=== PATIENT | female | born 1970 | race Hispanic/Latino ===

== ENCOUNTER 2017-02-08 16:19 | Inpatient (IN) | payer SELFPAY ==
--- NOTE | 2017-02-08 17:36 | Emergency Department Report ---
ED GI Bleed HPI - General Chief complaint: GI Bleed Stated complaint: N/V/D FEVER/NOSE BLEEDING Time Seen by Provider: 02/08/17 17:28 Source: patient, EMS Mode of arrival: Stretcher Limitations: Physical Limitation - History of Present Illness Initial comments: Patient is 46 y/o cf brought in by ems and presents with abd pain times 1 day and n/v/d times 3 days. Patient also reports having a nosebleed and bleeding from rectum that started today. Patient has a pretty significant history of alcohol abuse drinking approximately 5 shots of vodka per day for 6 months to a year. Patient complains of having a fever. Patient denies chest pain or shortness of breath. Patient states that her abdominal pain that started 1 day ago is in her bilateral lower abdomen. Abdominal pain is worse with movement and palpation. Patient does have recent ill contacts. MD complaint: blood on toilet paper, gross hematochezia -: Sudden, days(s) Location: LLQ, RLQ Radiation: none Severity scale (0 -10): 6 Quality: sharp Consistency: constant Improves with: bowel movement, vomiting, rest Worsens with: eating, movement Context: history of GI bleed, liver disease, alcohol abuse Associated Symptoms: abdominal pain, nausea, vomiting, epistaxis, fever/chills, malaise, weakness - Related Data Home Medications Medication Instructions Recorded Confirmed Last Taken Ondansetron 4 mg PO Q6H PRN 04/15/15 04/15/15 Unknown Oxycontin 20 mg PO BID 04/15/15 04/15/15 Unknown Percocet 5/325 mg 5 mg PO Q4H 04/15/15 04/15/15 Unknown Toradol 10 mg PO Q6H PRN 04/15/15 04/15/15 Unknown Xanax TAB 0.5 mg PO BID 04/15/15 04/15/15 04/15/15 Previous Rx's Medication Instructions Recorded Last Taken Type Cephalexin [Keflex] 500 mg PO Q8HR #18 cap 04/18/15 Unknown Rx HYDROcodone/APAP 5-325 [[place] 1 each PO Q6H PRN #15 tablet 04/18/15 Unknown Rx 5-325 mg TAB] Ipratropium/Albuterol Sulfate 1 ampul IH Q6H PRN #50 ampul.neb 04/18/15 Unknown Rx [DUONEB *Not for PRN Use*] Pantoprazole [Protonix TAB] 40 mg PO QDAY #30 tablet 04/18/15 Unknown Rx predniSONE [Deltasone] 10 mg PO QDAY #7 tab 04/18/15 Unknown Rx Allergies Allergy/AdvReac Type Severity Reaction Status Date / Time codeine Allergy Unknown Verified 04/15/15 21:07 levofloxacin [From Levaquin] Allergy Unknown Verified 04/15/15 21:07 Penicillins Allergy Unknown Verified 04/15/15 21:07 ED Review of Systems ROS: Stated complaint: N/V/D FEVER/NOSE BLEEDING Other details as noted in HPI Constitutional: fever, malaise, weakness Eyes: as per HPI ENT: as per HPI Respiratory: no symptoms reported Cardiovascular: as per HPI Endocrine: no symptoms reported Gastrointestinal: as per HPI, abdominal pain, nausea, vomiting, diarrhea, hematochezia Genitourinary: as per HPI Musculoskeletal: as per HPI Skin: as per HPI Neurological: as per HPI, weakness, numbness, vertigo Hematological/Lymphatic: as per HPI, easy bruising ED Past Medical Hx - Past Medical History Hx Hypertension: Yes Hx CVA: No Hx Heart Attack/AMI: No Hx Congestive Heart Failure: No Hx Diabetes: No Hx Deep Vein Thrombosis: No Hx Pulmonary Embolism: No Hx GERD: Yes Hx Liver Disease: Yes Hx Renal Disease: No Hx of Cancer: No Hx Sickle Cell Disease: No Hx Headaches / Migraines: Yes Hx Kidney Stones: No Hx Asthma: No Hx COPD: No Hx Tuberculosis: No Hx Dementia: No Additional medical history: Anxiety - Surgical History Hx Cholecystectomy: Yes Additional Surgical History: gastric bypass - Social History Smoking Status: Never Smoker Substance Use Type: Alcohol - Medications Home Medications: Home Medications Medication Instructions Recorded Confirmed Last Taken Type Ondansetron 4 mg PO Q6H PRN 04/15/15 04/15/15 Unknown History Oxycontin 20 mg PO BID 04/15/15 04/15/15 Unknown History Percocet 5/325 mg 5 mg PO Q4H 04/15/15 04/15/15 Unknown History Toradol 10 mg PO Q6H PRN 04/15/15 04/15/15 Unknown History Xanax TAB 0.5 mg PO BID 04/15/15 04/15/15 04/15/15 History Cephalexin [Keflex] 500 mg PO Q8HR #18 cap 04/18/15 Unknown Rx HYDROcodone/APAP 5-325 [[place] 1 each PO Q6H PRN #15 tablet 04/18/15 Unknown Rx 5-325 mg TAB] Ipratropium/Albuterol Sulfate 1 ampul IH Q6H PRN #50 ampul.neb 04/18/15 Unknown Rx [DUONEB *Not for PRN Use*] Pantoprazole [Protonix TAB] 40 mg PO QDAY #30 tablet 04/18/15 Unknown Rx predniSONE [Deltasone] 10 mg PO QDAY #7 tab 04/18/15 Unknown Rx ED Physical Exam - General Limitations: Physical Limitation General appearance: alert, in no apparent distress, anxious - Head Head exam: Present: atraumatic, normocephalic, normal inspection - Eye Eye exam: Present: normal appearance, PERRL, EOMI Pupils: Present: normal accommodation - ENT ENT exam: Present: mucous membranes dry - Neck Neck exam: Present: normal inspection, full ROM - Respiratory Respiratory exam: Present: normal lung sounds bilaterally - Cardiovascular Cardiovascular Exam: Present: regular rate, normal heart sounds - GI/Abdominal GI/Abdominal exam: Present: soft, tenderness, normal bowel sounds - Rectal Rectal exam: Present: deferred - Extremities Exam Extremities exam: Present: normal inspection, full ROM - Back Exam Back exam: Present: normal inspection - Neurological Exam Neurological exam: Present: alert, altered, oriented X3, CN II-XII intact - Psychiatric Psychiatric exam: Present: anxious - Skin Skin exam: Present: warm, dry, intact ED Course Vital Signs 02/08/17 17:17 Temperature 99.6 F Pulse Rate 111 H Respiratory 18 Rate Blood Pressure 127/71 Blood Pressure 127/71 [Left] O2 Sat by Pulse 100 Oximetry ED Medical Decision Making - Lab Data Result diagrams: 02/08/17 18:06 02/08/17 18:06 Lactic acid = 8.2, - Medical Decision Making Patient found to have a lactic acidosis along with a hypokalemia patient also had a drop in hemoglobin which is now 11.6 per patient her hemoglobin is normally at 14. Banana bag ordered for patient along with normal saline and kcl piggyback.. Discussed plan with patient. Patient agreed and voiced understanding of plan to admit.. Patient was admitted to the hospitalist group. I discussed patient's case with Dr. Cunningham.. Dr. Cunningham has accepted the patient,... - Differential Diagnosis bleeding d/o, abd pain, gi bleed, gastroenteritis, Critical care attestation.: If time is entered above; I have spent that time in minutes in the direct care of this critically ill patient, excluding procedure time. ED Disposition Clinical Impression: GI (gastrointestinal bleed), Nausea & vomiting, Diarrhea, Hypokalemia, Fever Disposition: -09 OP ADMIT IP TO THIS HOSP Is pt being admited?: Yes Does the pt Need Aspirin: No Condition: Serious
[2017-02-08] MEDS ORDERED: ATIVAN IV ONE (17:44)
[2017-02-08 18:19] LABS: Basophils % (Auto) 1.9 % (0.0-1.8); Hematocrit 35.7 % (30.3-42.9); Hemoglobin 11.6 gm/dl (10.1-14.3); Mean Corpuscular HGB Conc 33 % (30-34); Mean Corpuscular Hemoglobin 27 pg (28-32); Mean Corpuscular Volume 83 fl (79-97); Red Blood Count 4.28 M/mm3 (3.65-5.03); Red Cell Distribution Width 17.6 % (13.2-15.2); White Blood Count 2.7 K/mm3 (4.5-11.0)
[2017-02-08 18:22] LABS: Platelet Count 83 K/mm3 (140-440)
[2017-02-08 18:29] LABS: INR 1.31 (0.87-1.13)
[2017-02-08 18:30] LABS: Partial Thromboplastin Time 35.1 Sec. (24.2-36.6)
[2017-02-08 18:36] LABS: Urine Drugs of Abuse Note Disclamer
[2017-02-08 18:40] LABS: Alanine Aminotransferase 49 units/L (7-56); Albumin 3.6 g/dL (3.9-5); Albumin/Globulin Ratio 1.1 %; Alkaline Phosphatase 260 units/L (35-129); Anion Gap 33 mmol/L; BUN/Creatinine Ratio 14; Bilirubin,Direct 1.3 mg/dL (0-0.2); Blood Urea Nitrogen 7 mg/dL (7-17); Calcium 7.9 mg/dL (8.4-10.2); Carbon Dioxide 21 mmol/L (22-30); Chloride 77.3 mmol/L (98-107); Glucose 84 mg/dL (65-100); Lipase 32 units/L (13-60); Sodium 129 mmol/L (137-145); Total Protein 6.8 g/dL (6.3-8.2)
[2017-02-08 18:43] LABS: Bilirubin,Urine NEG (Negative); Blood,Urine SM (Negative); Ketones,Urine 20 mg/dL (Negative); Leukocyte Esterase,Urine TR (Negative); Nitrite,Urine NEG (Negative)
[2017-02-08 18:55] LABS: Potassium 2.8 mmol/L (3.6-5.0)
[2017-02-08] MEDS ORDERED: VITAMIN B-1 100 MG, FOLVITE 1 MG, INFUVITE 10 ML in NACL 0.9% 1000 ML 1,000 ML IV ONE (19:04)
[2017-02-08] MEDS ORDERED: NACL 0.9% 1000 ML 1,000 ML IV ONE (19:05)
[2017-02-08] MEDS ORDERED: 1: FOLVITE 1 MG, INFUVITE 10 ML, VITAMIN B-1 100 MG in NACL 0.9% 1000 ML 988.8 ML 2: NA IV SCH ×2 (20:00→20:45)
--- NOTE | 2017-02-08 20:22 | History and Physical Report ---
History of Present Illness Date of examination: 02/08/17 Date of admission: 02/08/17 Chief complaint: Cc: Vomiting for 1 day BRBPR 1 day History of present illness: History of Present Illness Patient is 46 y/o cf brought in by ems and presents with abd pain times 1 day and n/v/d times 3 days. Patient also reports having a nose bleed and bleeding from rectum that started today. Patient has a pretty significant history of alcohol abuse drinking approximately 5 shots of vodka per day for 6 months to a year. Patient complains of having a fever. Patient denies chest pain or shortness of breath. Patient states that her abdominal pain that started 1 day ago is in her epigastric region. Past Medical History Hx GERD: Yes Hx Liver Disease: Yes Hx Headaches / Migraines: Yes Additional medical history: Anxiety Chronic pain - Surgical History Hx Cholecystectomy: Yes Additional Surgical History: gastric bypass - Social History Smoking Status: Never Smoker Substance Use Type: Alcohol on regular basis for 1 year - Medications Home Medications: Home Medications Medication Instructions Recorded Confirmed Last Taken Type Ondansetron 4 mg PO Q6H PRN 04/15/15 04/15/15 Unknown History Oxycontin 20 mg PO BID 04/15/15 04/15/15 Unknown History Percocet 5/325 mg 5 mg PO Q4H 04/15/15 04/15/15 Unknown History Toradol 10 mg PO Q6H PRN 04/15/15 04/15/15 Unknown History Xanax TAB 0.5 mg PO BID 04/15/15 04/15/15 04/15/15 History Cephalexin [Keflex] 500 mg PO Q8HR #18 cap 04/18/15 Unknown Rx HYDROcodone/APAP 5-325 [[place] 1 each PO Q6H PRN #15 tablet 04/18/15 Unknown Rx 5-325 mg TAB] Ipratropium/Albuterol Sulfate 1 ampul IH Q6H PRN #50 ampul.neb 04/18/15 Unknown Rx [DUONEB *Not for PRN Use*] Pantoprazole [Protonix TAB] 40 mg PO QDAY #30 tablet 04/18/15 Unknown Rx predniSONE [Deltasone] 10 mg PO QDAY #7 tab 04/18/15 Unknown Rx Review of Systems Stated complaint: N/V/D FEVER/NOSE BLEEDING Other details as noted in HPI Constitutional: fever, malaise, weakness Eyes: as per HPI ENT: as per HPI Respiratory: no symptoms reported Cardiovascular: as per HPI Endocrine: no symptoms reported Gastrointestinal: as per HPI, abdominal pain, nausea, vomiting, diarrhea, hematochezia Genitourinary: as per HPI Musculoskeletal: as per HPI Skin: as per HPI Neurological: as per HPI, weakness, numbness, vertigo Hematological/Lymphatic: as per HPI, easy bruising Medications and Allergies Allergies Allergy/AdvReac Type Severity Reaction Status Date / Time codeine Allergy Unknown Verified 04/15/15 21:07 levofloxacin [From Levaquin] Allergy Unknown Verified 04/15/15 21:07 Penicillins Allergy Unknown Verified 04/15/15 21:07 Home Medications Medication Instructions Recorded Confirmed Last Taken Type Ondansetron 4 mg PO Q6H PRN 04/15/15 04/15/15 Unknown History Oxycontin 20 mg PO BID 04/15/15 04/15/15 Unknown History Percocet 5/325 mg 5 mg PO Q4H 04/15/15 04/15/15 Unknown History Toradol 10 mg PO Q6H PRN 04/15/15 04/15/15 Unknown History Xanax TAB 0.5 mg PO BID 04/15/15 04/15/15 04/15/15 History Cephalexin [Keflex] 500 mg PO Q8HR #18 cap 04/18/15 Unknown Rx HYDROcodone/APAP 5-325 [[place] 1 each PO Q6H PRN #15 tablet 04/18/15 Unknown Rx 5-325 mg TAB] Ipratropium/Albuterol Sulfate 1 ampul IH Q6H PRN #50 ampul.neb 04/18/15 Unknown Rx [DUONEB *Not for PRN Use*] Pantoprazole [Protonix TAB] 40 mg PO QDAY #30 tablet 04/18/15 Unknown Rx predniSONE [Deltasone] 10 mg PO QDAY #7 tab 04/18/15 Unknown Rx Active Meds: Active Medications Folic Acid 1 mg/ Multivitamins /Minerals 10 ml/ Thiamine HCl 100 mg/ Sodium Chloride 1,000 mls @ 125 mls/hr IV .BY DURATION ADRIANNA Sodium Chloride (Nacl 0.9% 1000 Ml) 1,000 mls @ 125 mls/hr IV .BY DURATION ADRIANNA Thiamine HCl 100 mg/ Folic Acid 1 mg/ Multivitamins/Minerals 10 ml/ Sodium Chloride 1,011.2 mls @ 125 mls/hr IV ONCE.ED ONE Stop: 02/09/17 03:09 Sodium Chloride (Nacl 0.9% 1000 Ml) 1,000 mls @ 250 mls/hr IV ONCE ONE Stop: 02/08/17 23:04 Potassium Chloride (Kcl 10meq/100ml) 10 meq in 100 mls @ 100 mls/hr IV Q1H ADRIANNA Stop: 02/08/17 21:59 Exam - Constitutional Vitals: Temp Pulse Resp BP Pulse Ox 99.6 F 110 H 19 118/71 96 02/08/17 17:17 02/08/17 19:30 02/08/17 19:30 02/08/17 19:30 02/08/17 19:30 General appearance: Present: mild distress, well-nourished - EENT Eyes: Present: PERRL ENT: hearing intact, clear oral mucosa - Neck Neck: Present: supple, normal ROM - Respiratory Respiratory effort: normal Respiratory: bilateral: CTA - Cardiovascular Heart rate: 90 Rhythm: regular Heart Sounds: Present: S1 & S2. Absent: rub, click - Extremities Extremities: no ischemia, pulses intact, pulses symmetrical, No edema Peripheral Pulses: within normal limits - Abdominal General gastrointestinal: Present: tender, non-distended, normal bowel sounds, other (OB positive) Female genitourinary: Present: normal - Integumentary Integumentary: Present: clear, warm, dry - Musculoskeletal Musculoskeletal: gait normal, strength equal bilaterally - Psychiatric Psychiatric: appropriate mood/affect, intact judgment & insight - Neurologic Neurologic: CNII-XII intact, moves all extremities Results - Labs CBC & Chem 7: 02/09/17 04:42 02/09/17 04:42 Labs: Laboratory Last Values WBC 2.7 K/mm3 (4.5-11.0) L 02/08/17 18:06 RBC 4.28 M/mm3 (3.65-5.03) 02/08/17 18:06 Hgb 11.6 gm/dl (10.1-14.3) 02/08/17 18:06 Hct 35.7 % (30.3-42.9) 02/08/17 18:06 MCV 83 fl (79-97) 02/08/17 18:06 MCH 27 pg (28-32) L 02/08/17 18:06 MCHC 33 % (30-34) 02/08/17 18:06 RDW 17.6 % (13.2-15.2) H 02/08/17 18:06 Plt Count 83 K/mm3 (140-440) L 02/08/17 18:06 Lymph % (Auto) 26.2 % (13.4-35.0) 02/08/17 18:06 [place] % (Auto) 14.9 % (0.0-7.3) H 02/08/17 18:06 Eos % (Auto) 0.0 % (0.0-4.3) 02/08/17 18:06 Baso % (Auto) 1.9 % (0.0-1.8) H 02/08/17 18:06 Lymph # 0.7 K/mm3 (1.2-5.4) L 02/08/17 18:06 [place] # 0.4 K/mm3 (0.0-0.8) 02/08/17 18:06 Eos # 0.0 K/mm3 (0.0-0.4) 02/08/17 18:06 Baso # 0.1 K/mm3 (0.0-0.1) 02/08/17 18:06 Seg Neutrophils % 57.0 % (40.0-70.0) 02/08/17 18:06 Seg Neutrophils # 1.5 K/mm3 (1.8-7.7) L 02/08/17 18:06 PT 16.9 Sec. (12.2-14.9) H 02/08/17 18:06 INR 1.31 (0.87-1.13) H 02/08/17 18:06 APTT 35.1 Sec. (24.2-36.6) 02/08/17 18:06 Sodium 129 mmol/L (137-145) L 02/08/17 18:06 Potassium 2.8 mmol/L (3.6-5.0) L* 02/08/17 18:06 Chloride 77.3 mmol/L (98-107) L 02/08/17 18:06 Carbon Dioxide 21 mmol/L (22-30) L 02/08/17 18:06 Anion Gap 33 mmol/L 02/08/17 18:06 BUN 7 mg/dL (7-17) 02/08/17 18:06 Creatinine 0.5 mg/dL (0.7-1.2) L 02/08/17 18:06 Estimated GFR > 60 ml/min 02/08/17 18:06 BUN/Creatinine Ratio 14 % 02/08/17 18:06 Glucose 84 mg/dL (65-100) 02/08/17 18:06 Lactic Acid 8.20 mmol/L (0.7-2.0) H* 02/08/17 18:06 Calcium 7.9 mg/dL (8.4-10.2) L 02/08/17 18:06 Magnesium 1.40 mg/dL (1.7-2.3) L 02/08/17 18:06 Total Bilirubin 2.30 mg/dL (0.1-1.2) H 02/08/17 18:06 Direct Bilirubin 1.3 mg/dL (0-0.2) H 02/08/17 18:06 Indirect Bilirubin 1.0 mg/dL 02/08/17 18:06 AST 295 units/L (5-40) H 02/08/17 18:06 ALT 49 units/L (7-56) 02/08/17 18:06 Alkaline Phosphatase 260 units/L (35-129) H 02/08/17 18:06 Ammonia 24.0 umol/L (25-60) L 02/08/17 18:06 Total Protein 6.8 g/dL (6.3-8.2) 02/08/17 18:06 Albumin 3.6 g/dL (3.9-5) L 02/08/17 18:06 Albumin/Globulin Ratio 1.1 % 02/08/17 18:06 Lipase 32 units/L (13-60) 02/08/17 18:06 Urine Color Dark yellow (Yellow) 02/08/17 18:26 Urine Turbidity Clear (Clear) 02/08/17 18:26 Urine pH 6.0 (5.0-7.0) 02/08/17 18:26 Ur Specific [place] 1.013 (1.003-1.030) 02/08/17 18:26 Urine Protein 100 mg/dl mg/dL (Negative) 02/08/17 18:26 Urine Glucose (UA) Neg mg/dL (Negative) 02/08/17 18:26 Urine Ketones 20 mg/dL (Negative) 02/08/17 18:26 Urine Blood Sm (Negative) 02/08/17 18:26 Urine Nitrite Neg (Negative) 02/08/17 18:26 Urine Bilirubin Neg (Negative) 02/08/17 18:26 Urine Urobilinogen 4.0 mg/dL (<2.0) 02/08/17 18:26 Ur Leukocyte Esterase Tr (Negative) 02/08/17 18:26 Urine WBC (Auto) 8.0 /HPF (0.0-6.0) H 02/08/17 18:26 Urine RBC (Auto) 4.0 /HPF (0.0-6.0) 02/08/17 18:26 U Epithel Cells (Auto) 2.0 /HPF (0-13.0) 02/08/17 18:26 Amorphous Crystals Few 02/08/17 18:26 Urine Opiates Screen Presumptive negative 02/08/17 18:26 Urine Methadone Screen Presumptive negative 02/08/17 18:26 Ur Barbiturates Screen Presumptive negative 02/08/17 18:26 Ur Phencyclidine Scrn Presumptive negative 02/08/17 18:26 Ur Amphetamines Screen Presumptive negative 02/08/17 18:26 U Benzodiazepines Scrn Presumptive negative 02/08/17 18:26 Urine Cocaine Screen Presumptive negative 02/08/17 18:26 U Marijuana (THC) Screen Presumptive negative 02/08/17 18:26 Drugs of Abuse Note Disclamer 02/08/17 18:26 - Imaging and Cardiology CT scan - abdomen: report reviewed (NAF) Assessment and Plan Advance Directives: Yes (Full code) VTE prophylaxis?: Chemical Plan of care discussed with patient/family: Yes - Patient Problems (1) GI (gastrointestinal bleed) Current Visit: Yes Status: Acute Qualifiers: GI bleed type/associated pathology: gastrointestinal hemorrhage with hematemesis Gastritis type: G Qualified Code(s): K92.0 - Hematemesis Plan to address problem: Upper gi bleed Gi consult reqested (2) Hypokalemia Current Visit: Yes Status: Acute Plan to address problem: Supplemented (3) Pancytopenia Current Visit: Yes Status: Acute Plan to address problem: Sec to ETOH induced bone marrow suppresion (4) EtOH dependence Current Visit: Yes Status: Chronic Qualifiers: Substance use status: S Complication of substance-induced condition: uncomplicated Plan to address problem: CIWA protocol initiated to prevent DT's (5) Hyponatremia Current Visit: Yes Status: Acute Plan to address problem: IV NS for now.Check osmolality and urine lytes (6) Malnutrition Current Visit: Yes Status: Chronic Qualifiers: Malnutrition type: protein-calorie malnutrition Protein-calorie malnutrition severity: mild Qualified Code(s): E44.1 - Mild protein-calorie malnutrition Plan to address problem: Supplements for now (7) DVT prophylaxis Current Visit: Yes Status: Acute Plan to address problem: SCD's only
[2017-02-08] MEDS ORDERED: DULCOLAX PR PRN (20:23)
[2017-02-08] MEDS ORDERED: ZOFRAN IV PRN (20:23)
[2017-02-08] MEDS ORDERED: TYLENOL PO PRN (20:23)
[2017-02-08] MEDS ORDERED: MILK OF MAGNESIA PO PRN (20:23)
--- NOTE | 2017-02-08 20:49 | Cat Scan Report ---
FINAL REPORT PROCEDURE: CT ABDOMEN PELVIS WO CON TECHNIQUE: Computerized axial tomography of the abdomen and pelvis was performed without intravenous contrast. This study is performed without intravascular contrast material and its sensitivity for abdominal and pelvic pathology, including neoplasms, inflammation, abscess, free fluid, thrombosis, arterial dissection and infarction, is reduced compared with a contrast enhanced study. HISTORY: G I Bleed COMPARISON: No prior studies are available for comparison. FINDINGS: Visualized lower thorax: No significant abnormality. Liver: Liver is enlarged and demonstrates diffuse fatty infiltration.. Spleen: Normal size and attenuation. Gallbladder and biliary system: There has been a cholecystectomy. The bile ducts are normal in caliber.. Pancreas: Normal. Adrenals: Normal. Kidneys: There are no kidney stones. There is no hydronephrosis.. GI tract: There is no bowel obstruction. There has been gastric bypass surgery. There is thickening of the right colon which could indicate colitis. This could be infectious or inflammatory. There is no specific evidence of ischemic colitis. The appendix is not identified.. Lymph nodes and mesentery: Normal. Vasculature: Normal. Bladder: Normal. Reproductive organs: There has been a hysterectomy.. Peritoneum: There is no ascites, free air, abscess or adenopathy.. Musculoskeletal structures: No significant abnormality. Other: There has been ventral hernia repair surgery. There is a recurrent hernia containing omental fat. There is no bowel incarceration.. IMPRESSION: Liver is enlarged and demonstrates diffuse fatty infiltration.. There has been a cholecystectomy. The bile ducts are normal in caliber.. There are no kidney stones. There is no hydronephrosis.. There is no bowel obstruction. There has been gastric bypass surgery. There is thickening of the right colon which could indicate colitis. This could be infectious or inflammatory. There is no specific evidence of ischemic colitis. The appendix is not identified.. There has been a hysterectomy.. There is no ascites, free air, abscess or adenopathy.. There has been ventral hernia repair surgery. There is a recurrent hernia containing omental fat. There is no bowel incarceration.. .
[2017-02-08 21:02] LABS: Hematocrit 33.5 % (30.3-42.9); Hemoglobin 11.2 gm/dl (10.1-14.3)
[2017-02-08] MEDS: KCL 10MEQ/100ML 10 MEQ/100 ML BAG IV SCH (21:20)
[2017-02-08] MEDS ORDERED: PEPCID IV SCH (22:00)
[2017-02-08] MEDS ORDERED: MORPHINE ONE (22:11)
[2017-02-08] MEDS ORDERED: ZOFRAN ONE (22:11)
[2017-02-08] MEDS: MORPHINE IV PRN (22:24)
[2017-02-08] MEDS: ZOFRAN IV PRN (22:24)
[2017-02-09] MEDS: KCL 10MEQ/100ML 10 MEQ/100 ML BAG IV SCH ×7 (01:02→22:46)
[2017-02-09] MEDS ORDERED: ATIVAN IV PRN (01:22)
[2017-02-09] MEDS ORDERED: BENADRYL PO ONE (01:26)
[2017-02-09] MEDS ORDERED: BENADRYL IV ONE (02:09)
[2017-02-09] MEDS: MORPHINE IV PRN ×2 (02:19→07:05)
[2017-02-09] MEDS: ZOFRAN IV PRN ×3 (02:19→09:50)
[2017-02-09] MEDS: ATIVAN IV PRN ×3 (03:28→12:20)
[2017-02-09 05:19] LABS: Basophils % (Auto) 0.8 % (0.0-1.8); Hemoglobin 10.1 gm/dl (10.1-14.3); Mean Corpuscular HGB Conc 34 % (30-34); Mean Corpuscular Hemoglobin 28 pg (28-32); Mean Corpuscular Volume 83 fl (79-97); Red Blood Count 3.63 M/mm3 (3.65-5.03); Red Cell Distribution Width 17.5 % (13.2-15.2); White Blood Count 2.5 K/mm3 (4.5-11.0)
[2017-02-09 05:20] LABS: Platelet Count 50 K/mm3 (140-440)
[2017-02-09 05:36] LABS: Alanine Aminotransferase 46 units/L (7-56); Albumin 3.5 g/dL (3.9-5); Albumin/Globulin Ratio 1.3 %; Alkaline Phosphatase 230 units/L (35-129); Anion Gap 28 mmol/L; BUN/Creatinine Ratio 15; Blood Urea Nitrogen 6 mg/dL (7-17); Calcium 7.5 mg/dL (8.4-10.2); Carbon Dioxide 25 mmol/L (22-30); Chloride 85.8 mmol/L (98-107); Glucose 93 mg/dL (65-100); Potassium 3.3 mmol/L (3.6-5.0); Sodium 135 mmol/L (137-145); Total Protein 6.3 g/dL (6.3-8.2)
[2017-02-09 09:09] LABS: Hematocrit 33.9 % (30.3-42.9); Hemoglobin 11.2 gm/dl (10.1-14.3)
[2017-02-09] MEDS ORDERED: MAGNESIUM SULFATE 3 GM in NACL 0.9% 100 ML IV ONE (09:14)
[2017-02-09 09:16] LABS: Potassium 3.4 mmol/L (3.6-5.0)
[2017-02-09 09:18] LABS: Magnesium 1.4 mg/dL (1.7-2.3); Phosphorous 3.3 mg/dL (2.5-4.5)
[2017-02-09] MEDS ORDERED: CEPHULAC PR SCH (10:00)
[2017-02-09] MEDS: D5NS 1,000 ML IV SCH (10:00)
[2017-02-09 11:22] LABS: INR 1.27 (0.87-1.13)
[2017-02-09] MEDS: PROTONIX 80 MG in NACL 0.9% 100 ML IV SCH (12:20)
--- NOTE | 2017-02-09 13:56 | Progress Note ---
Assessment and Plan Assessment and plan: Acute colitis . Admitted to med floor. CT abdomen showed colitis. Start Flagyl iv. She is allergic to levaquin. GI consulted. Bloody stool likely due to colitis. H/H is stable Chronic liver disease. 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 Acute hepatic encephalopathy. Ammonia 68, elevated. Will give Lactulose rectally Alcohol withdrawal syndrome. She is having some confusion and tremors. She is a heavy drinker - drinking Vodka 5 shots a day for several months. Last drink 2 days ago. Patient started on CIWA protocol. UTI Hyponatremia Hypokalemia. Full code status History Interval history: Bloody stools, Bleeding from nose , one episode Confusion Hospitalist Physical - Physical exam Narrative exam: Gen Appearance: Not in acute distress,obese HEENT: normocephalic, atraumatic Neck: supple, no JVD Lungs: Clear to auscultation, no rales, no wheezing, Heart: S1 and S2 regular, no murmurs,no rubs or gallop, Abdomen: Soft , mild tender lower abdomen, non distended, normal bowel sounds Extremity: Trace edema, no clubbing or cyanosis, Neuro : Awake,alert, mild confused, tremors both hands , normal speech, moves all extremities - Constitutional Vitals: Temp Pulse Resp BP Pulse Ox 98.7 F 102 H 18 116/76 93 02/09/17 09:46 02/09/17 09:46 02/09/17 09:46 02/09/17 09:46 02/09/17 05:25 General appearance: Present: mild distress, well-nourished Results - Labs CBC & Chem 7: 02/09/17 08:41 02/09/17 08:41 Labs: Laboratory Last Values WBC 2.5 K/mm3 (4.5-11.0) L 02/09/17 04:42 RBC 3.63 M/mm3 (3.65-5.03) L 02/09/17 04:42 Hgb 11.2 gm/dl (10.1-14.3) 02/09/17 08:41 Hct 33.9 % (30.3-42.9) 02/09/17 08:41 MCV 83 fl (79-97) 02/09/17 04:42 MCH 28 pg (28-32) 02/09/17 04:42 MCHC 34 % (30-34) 02/09/17 04:42 RDW 17.5 % (13.2-15.2) H 02/09/17 04:42 Plt Count 50 K/mm3 (140-440) L 02/09/17 04:42 Lymph % (Auto) 19.1 % (13.4-35.0) 02/09/17 04:42 [place] % (Auto) 11.2 % (0.0-7.3) H 02/09/17 04:42 Eos % (Auto) 0.0 % (0.0-4.3) 02/09/17 04:42 Baso % (Auto) 0.8 % (0.0-1.8) 02/09/17 04:42 Lymph # 0.5 K/mm3 (1.2-5.4) L 02/09/17 04:42 [place] # 0.3 K/mm3 (0.0-0.8) 02/09/17 04:42 Eos # 0.0 K/mm3 (0.0-0.4) 02/09/17 04:42 Baso # 0.0 K/mm3 (0.0-0.1) 02/09/17 04:42 Seg Neutrophils % 68.9 % (40.0-70.0) 02/09/17 04:42 Seg Neutrophils # 1.7 K/mm3 (1.8-7.7) L 02/09/17 04:42 PT 16.5 Sec. (12.2-14.9) H 02/09/17 10:20 INR 1.27 (0.87-1.13) H 02/09/17 10:20 APTT 35.1 Sec. (24.2-36.6) 02/08/17 18:06 Sodium 132 mmol/L (137-145) L 02/09/17 08:41 Potassium 3.4 mmol/L (3.6-5.0) L 02/09/17 08:41 Chloride 83.0 mmol/L (98-107) L 02/09/17 08:41 Carbon Dioxide 23 mmol/L (22-30) 02/09/17 08:41 Anion Gap 29 mmol/L 02/09/17 08:41 BUN 6 mg/dL (7-17) L 02/09/17 04:42 Creatinine 0.4 mg/dL (0.7-1.2) L 02/09/17 04:42 Estimated GFR > 60 ml/min 02/09/17 04:42 BUN/Creatinine Ratio 15 % 02/09/17 04:42 Glucose 93 mg/dL (65-100) 02/09/17 04:42 Osmolality 281 Mosm/kg 02/09/17 08:41 Lactic Acid 1.70 mmol/L (0.7-2.0) 02/09/17 10:20 Calcium 7.5 mg/dL (8.4-10.2) L 02/09/17 04:42 Phosphorus 3.30 mg/dL (2.5-4.5) 02/09/17 08:41 Magnesium 1.40 mg/dL (1.7-2.3) L 02/09/17 08:41 Total Bilirubin 2.50 mg/dL (0.1-1.2) H 02/09/17 04:42 Direct Bilirubin 1.3 mg/dL (0-0.2) H 02/08/17 18:06 Indirect Bilirubin 1.0 mg/dL 02/08/17 18:06 AST 262 units/L (5-40) H 02/09/17 04:42 ALT 46 units/L (7-56) 02/09/17 04:42 Alkaline Phosphatase 230 units/L (35-129) H 02/09/17 04:42 Ammonia 68.0 umol/L (25-60) H 02/09/17 08:41 Total Protein 6.3 g/dL (6.3-8.2) 02/09/17 04:42 Albumin 3.5 g/dL (3.9-5) L 02/09/17 04:42 Albumin/Globulin Ratio 1.3 % 02/09/17 04:42 Lipase 32 units/L (13-60) 02/08/17 18:06 Urine Color Dark yellow (Yellow) 02/08/17 18:26 Urine Turbidity Clear (Clear) 02/08/17 18:26 Urine pH 6.0 (5.0-7.0) 02/08/17 18:26 Ur Specific [place] 1.013 (1.003-1.030) 02/08/17 18:26 Urine Protein 100 mg/dl mg/dL (Negative) 02/08/17 18:26 Urine Glucose (UA) Neg mg/dL (Negative) 02/08/17 18:26 Urine Ketones 20 mg/dL (Negative) 02/08/17 18:26 Urine Blood Sm (Negative) 02/08/17 18:26 Urine Nitrite Neg (Negative) 02/08/17 18:26 Urine Bilirubin Neg (Negative) 02/08/17 18:26 Urine Urobilinogen 4.0 mg/dL (<2.0) 02/08/17 18:26 Ur Leukocyte Esterase Tr (Negative) 02/08/17 18:26 Urine WBC (Auto) 8.0 /HPF (0.0-6.0) H 02/08/17 18:26 Urine RBC (Auto) 4.0 /HPF (0.0-6.0) 02/08/17 18:26 U Epithel Cells (Auto) 2.0 /HPF (0-13.0) 02/08/17 18:26 Amorphous Crystals Few 02/08/17 18:26 Urine Opiates Screen Presumptive negative 02/08/17 18:26 Urine Methadone Screen Presumptive negative 02/08/17 18:26 Ur Barbiturates Screen Presumptive negative 02/08/17 18:26 Ur Phencyclidine Scrn Presumptive negative 02/08/17 18:26 Ur Amphetamines Screen Presumptive negative 02/08/17 18:26 U Benzodiazepines Scrn Presumptive negative 02/08/17 18:26 Urine Cocaine Screen Presumptive negative 02/08/17 18:26 U Marijuana (THC) Screen Presumptive negative 02/08/17 18:26 Drugs of Abuse Note Disclamer 02/08/17 18:26
--- NOTE | 2017-02-09 15:34 | Consultation ---
History of Present Illness - Reason for Consult Consult date: 02/09/17 rectal bleed - History of Present Illness See Dictated note. Medications and Allergies Allergies Allergy/AdvReac Type Severity Reaction Status Date / Time codeine Allergy Unknown Verified 04/15/15 21:07 levofloxacin [From Levaquin] Allergy Unknown Verified 04/15/15 21:07 Penicillins Allergy Unknown Verified 04/15/15 21:07 Home Medications Medication Instructions Recorded Confirmed Last Taken Type Ondansetron 4 mg PO Q6H PRN 04/15/15 04/15/15 Unknown History Oxycontin 20 mg PO BID 04/15/15 04/15/15 Unknown History Percocet 5/325 mg 5 mg PO Q4H 04/15/15 04/15/15 Unknown History Toradol 10 mg PO Q6H PRN 04/15/15 04/15/15 Unknown History Xanax TAB 0.5 mg PO BID 04/15/15 04/15/15 04/15/15 History Cephalexin [Keflex] 500 mg PO Q8HR #18 cap 04/18/15 Unknown Rx HYDROcodone/APAP 5-325 [[place]verse 1 each PO Q6H PRN #15 tablet 04/18/15 Unknown Rx 5-325 mg TAB] Ipratropium/Albuterol Sulfate 1 ampul IH Q6H PRN #50 ampul.neb 04/18/15 Unknown Rx [DUONEB *Not for PRN Use*] Pantoprazole [Protonix TAB] 40 mg PO QDAY #30 tablet 04/18/15 Unknown Rx predniSONE [Deltasone] 10 mg PO QDAY #7 tab 04/18/15 Unknown Rx Active Meds: Active Medications Acetaminophen (Tylenol) 650 mg PO Q4H PRN PRN Reason: Pain MILD(1-3)/Fever >100.5/TANNER Bisacodyl (Dulcolax) 10 mg MD QDAY PRN PRN Reason: Constipation unrelieved by MOM Dextrose/Sodium Chloride (D5ns) 1,000 mls @ 100 mls/hr IV DIRECT ADRIANNA Pantoprazole Sodium 80 mg/ (Sodium Chloride) 100 mls @ 10 mls/hr IV DIRECT ADRIANNA PRN Reason: 8 MG/HR Last Admin: 02/09/17 12:20 Dose: 8 mg/hr, 10 mls/hr Folic Acid 1 mg/ Thiamine HCl 100 mg/ Multivitamins/Minerals 10 ml/ Sodium Chloride 1,000 mls @ 125 mls/hr IV Q24H ADRIANNA Metronidazole (Flagyl 500 Mg/100 Ml) 500 mg in 100 mls @ 100 mls/hr IV Q8HR ADRIANNA Lactulose (Cephulac) 200 gm MD ONCE ADRIANNA Lorazepam (Ativan) 2 mg IV Q1H PRN PRN Reason: CIWA-Ar 8-15 Last Admin: 02/09/17 12:20 Dose: 2 mg Lorazepam (Ativan) 4 mg IV Q1H PRN PRN Reason: CIWA-Ar 16-25 Magnesium Hydroxide (Milk Of Magnesia) 30 ml PO Q4H PRN PRN Reason: Constipation Morphine Sulfate (Morphine) 4 mg IV Q4H PRN PRN Reason: Pain , Severe (7-10) Last Admin: 02/09/17 07:05 Dose: 4 mg Ondansetron HCl (Zofran) 4 mg IV Q3H PRN PRN Reason: N/V unrelieved by Shant Last Admin: 02/09/17 09:50 Dose: 4 mg Exam - Constitutional Vitals: Temp Pulse Resp BP Pulse Ox 98.5 F 112 H 20 109/72 93 02/09/17 12:00 02/09/17 12:00 02/09/17 12:00 02/09/17 12:00 02/09/17 05:25 Results - Labs CBC & Chem 7: 02/09/17 08:41 02/09/17 08:41 Labs: Abnormal lab results 02/09/17 02/09/17 02/09/17 Range/Units 04:42 04:42 08:41 WBC 2.5 L (4.5-11.0) K/mm3 RBC 3.63 L (3.65-5.03) M/mm3 Hct 30.0 L (30.3-42.9) % RDW 17.5 H (13.2-15.2) % Plt Count 50 L (140-440) K/mm3 [place] % (Auto) 11.2 H (0.0-7.3) % Lymph # 0.5 L (1.2-5.4) K/mm3 Seg Neutrophils # 1.7 L (1.8-7.7) K/mm3 PT (12.2-14.9) Sec. INR (0.87-1.13) Sodium (137-145) mmol/L Potassium (3.6-5.0) mmol/L Chloride (98-107) mmol/L BUN 6 L (7-17) mg/dL Creatinine 0.4 L (0.7-1.2) mg/dL Calcium 7.5 L (8.4-10.2) mg/dL Magnesium 1.40 L (1.7-2.3) mg/dL Total Bilirubin 2.50 H (0.1-1.2) mg/dL AST 262 H (5-40) units/L Alkaline Phosphatase 230 H (35-129) units/L Ammonia (25-60) umol/L Albumin 3.5 L (3.9-5) g/dL 02/09/17 02/09/17 02/09/17 Range/Units 08:41 08:41 10:20 WBC (4.5-11.0) K/mm3 RBC (3.65-5.03) M/mm3 Hct (30.3-42.9) % RDW (13.2-15.2) % Plt Count (140-440) K/mm3 [place] % (Auto) (0.0-7.3) % Lymph # (1.2-5.4) K/mm3 Seg Neutrophils # (1.8-7.7) K/mm3 PT 16.5 H (12.2-14.9) Sec. INR 1.27 H (0.87-1.13) Sodium 132 L (137-145) mmol/L Potassium 3.4 L (3.6-5.0) mmol/L Chloride 83.0 L (98-107) mmol/L BUN (7-17) mg/dL Creatinine (0.7-1.2) mg/dL Calcium (8.4-10.2) mg/dL Magnesium (1.7-2.3) mg/dL Total Bilirubin (0.1-1.2) mg/dL AST (5-40) units/L Alkaline Phosphatase (35-129) units/L Ammonia 68.0 H (25-60) umol/L Albumin (3.9-5) g/dL Assessment and Plan 1. Rectal bleed - rectal exam shows brown stool. No blood. Last BM was 3 d ago, with BRB and brown stool, per patient. 2. R colon thickening on CT - not clinically significant at present. May have been due to self-limited infectious process. - no further evaluation. 3. Alcoholic hepatitis - pt and family express desire to quit. - SW for Rehab options
[2017-02-09] MEDS: FLAGYL 500 MG/100 ML 500 MG/100 ML BAG IV SCH ×2 (18:03→22:26)
[2017-02-09] MEDS ORDERED: FOLVITE IV SCH (20:00)
[2017-02-09] MEDS ORDERED: INFUVITE IV SCH (20:00)
[2017-02-09] MEDS ORDERED: VITAMIN B1 IV SCH (20:00)
[2017-02-09] MEDS ORDERED: NACL IV SCH (20:00)
--- NOTE | 2017-02-09 21:02 | Consultation ---
REASON FOR CONSULTATION: 1. Rectal bleed. 2. Nausea and vomiting. HISTORY OF PRESENT ILLNESS: Ms. Sams is a 46-year-old woman who has a known history of alcoholic hepatitis. She has had this history for several years at least and underwent an upper endoscopy by Dr. Medina in March of 2014, at which time, gastric bypass anatomy was noted and no varices were noted. Apparently, her mother in May and at that time, she started drinking heavily and in August, she had a bilirubin of 9 at that time from the alcoholic hepatitis, which then improved. Unfortunately, she has continued to drink. The patient's family is in the room. She apparently came to the Emergency Room because of complaints of diffuse abdominal pain and feeling weak and could not walk. She was having nausea and vomiting as well. states that the emesis was clear with no blood. The patient states she was having diarrhea, which she describes as once a day, but loose and watery. She notes that the last time she had a bowel movement that was brown mixed with bright red blood and was 3 days ago. She has not had any bowel movements since then. She states she felt feverish as well. Because of the weakness, they called EMS and were brought to [facility]. Currently, the patient had some nausea earlier today with dry heaves, but no vomiting. She has had no bowel movements. She does not have significant abdominal pain, though she does have some discomfort. She notes that she was having a sinus infection and had been having nosebleed recently. She saw her PCP several days ago and was told that she had a viral process most likely. ALLERGIES: SHE HAS AN ALLERGY TO CODEINE, LEVAQUIN, AND PENICILLIN. MEDICATIONS: At home, she is on Protonix, inhalers, and pain medications. PAST MEDICAL HISTORY: She has a history of: 1. Gastric bypass surgery in 2009. 2. Alcoholic hepatitis-last seen by Dr. Medina in the office in 09/2016. 3. Cholecystectomy. 4. Ventral hernia repair with mesh. FAMILY HISTORY: Noncontributory. SOCIAL HISTORY: She drinks as noted above and states she is anywhere from 2-6 shots of vodka per day. There is no ethanol history. REVIEW OF SYSTEMS: Otherwise, noncontributory. PHYSICAL EXAMINATION: GENERAL: This is a middle-aged white female who looks wan and fatigue. VITAL SIGNS: Her temperature 98.5, pulse 112, and blood pressure 109/74. HEENT: She is mildly icteric. Pupils are round and reactive. Oropharynx is clear. LUNGS: Clear bilaterally to auscultation. CARDIOVASCULAR: Regular with no extra heart sounds. ABDOMEN: Soft with good bowel sounds and no organomegaly. There is minimal tenderness to deep palpation diffusely. RECTAL: Reveals moderate external hemorrhoids and no masses. There is light brownish stool noted with no evidence of oly blood. EXTREMITIES: Reveal no edema. NEUROLOGIC: She is alert and oriented x3. She answers questions appropriately. LABORATORY DATA: White count is 2.5, hemoglobin 11.2, hematocrit , MCV of 83, platelet count of 50,000. Her protime is 16.5 with an INR of 1.27. CMP shows sodium 132, potassium 3.4, chloride 83, bicarbonate 23, BUN 6, creatinine 0.4, glucose 93. AST is 262, ALT is 46, alkaline phosphatase is 230, total bilirubin is 2.5, magnesium is low at 1.4, albumin is 3.5. Urine drug screen is negative. IMAGING STUDIES: CT report shows fatty liver that is enlarged and right colon wall thickening with no stranding around it as well as a gastric bypass anatomy and history of ventral hernia repair. IMPRESSION: 1. Rectal bleed-the patient does not currently have rectal bleeding. She may well have had it 3 days ago during the onset of this nausea, vomiting, and diarrhea which may well have represented a self-limited infectious process. Since she has not had a bowel movement in 3 days, no further evaluation is warranted. 2. Alcohol abuse-lengthy discussion with the patient and family. She expresses a desire to quit. We would engage social work for rehabilitation options. 3. Abnormal liver enzymes-consistent with alcoholic hepatitis. I would monitor and follow up as an outpatient off alcohol. 4. Thrombocytopenia-due either to alcoholic bone marrow suppression, relative portal hypertension due to fatty infiltration resulting in splenic destruction of platelets, or possibly to liver disease. We would monitor this as well, off alcohol to see how she does. 5. Nausea and vomiting-appears to be better. Would aggressively correct electrolytes including magnesium and I suspect that will help. 6. Status post gastric bypass-discussed nutritional support including vitamins with the patient and family. JOB# [id number] HRC/NTS
[2017-02-09] MEDS: BACTRIM DS PO SCH (22:26)
[2017-02-10] MEDS: MORPHINE IV PRN ×3 (00:47→18:18)
[2017-02-10] MEDS: PROTONIX 80 MG in NACL 0.9% 100 ML IV SCH (00:54)
[2017-02-10] MEDS: ZOFRAN IV PRN ×3 (01:02→18:18)
[2017-02-10] MEDS: FLAGYL 500 MG/100 ML 500 MG/100 ML BAG IV SCH ×2 (06:08→14:17)
[2017-02-10] MEDS ORDERED: CEPHULAC PO SCH (10:00)
[2017-02-10 10:09] LABS: BUN/Creatinine Ratio 10; Blood Urea Nitrogen 5 mg/dL (7-17); Calcium 7.6 mg/dL (8.4-10.2); Carbon Dioxide 30 mmol/L (22-30); Chloride 87.1 mmol/L (98-107); Glucose 198 mg/dL (65-100); Sodium 132 mmol/L (137-145)
[2017-02-10 10:10] LABS: Anion Gap 18 mmol/L
[2017-02-10 10:11] LABS: Potassium 2.9 mmol/L (3.6-5.0)
[2017-02-10] MEDS: BACTRIM DS PO SCH (11:08)
[2017-02-10] MEDS: POTASSIUM CHLORIDE PO SCH ×2 (11:09→14:55)
[2017-02-10] MEDS: D5NS 1,000 ML IV SCH (12:46)
[2017-02-10] MEDS ORDERED: BENADRYL IV ONE (12:49)
[2017-02-10] MEDS: ATIVAN IV PRN (13:03)
--- NOTE | 2017-02-10 18:25 | Discharge Summary ---
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 2.Follow up with Dr. Arun Medina in 3-5 days. Follow up with: PRIMARY CARE, [Primary Care Provider] - 7 Days Prescriptions: Folic Acid [Folvite] 1 mg PO DAILY #30 tablet metroNIDAZOLE [Flagyl] 500 mg PO Q8HR #15 tablet Multivitamin Tab [Multiple Vitamin TAB (Theragran)] 1 each PO DAILY #30 tablet Sulfamethoxazole/Trimethoprim [Bactrim DS TAB] 1 each PO Q12HR #4 tablet
[2017-02-10 20:15] VITALS: BP 111/76
[2017-02-10] MEDS ORDERED: XANAX 0.5 MG PO SCH (22:00)
[2017-02-10] MEDS ORDERED: XANAX PO SCH (22:00)
[2017-02-10] MEDS ORDERED: PROTONIX PO SCH (22:00)
[2017-02-11] MEDS ORDERED: VITAMIN B-1 PO SCH (10:00)
[2017-02-11] MEDS ORDERED: CEPHULAC PO SCH (10:00)
[2017-02-11] MEDS ORDERED: FOLVITE PO SCH (10:00)
[2017-02-11] MEDS ORDERED: THERAGRAN Tab PO SCH (10:00)
== END 2017-02-10 20:00 | disposition home or self-care (01) | DRG 378 ==
LOC: ED 16:19 → 3A 20:23
PROVIDERS: ADMIT Internal Medicine; ATTEND Internal Medicine
DX: K92.2 Gastrointestinal hemorrhage, unspecified (principal); D61.82 Myelophthisis; E87.1 Hypo-osmolality and hyponatremia; E44.1 Mild protein-calorie malnutrition; F10.239 Alcohol dependence with withdrawal, unspecified; N39.0 Urinary tract infection, site not specified; E87.6 Hypokalemia; K52.9 Noninfective gastroenteritis and colitis, unspecified; K72.90 Hepatic failure, unspecified without coma
CPT/HCPCS: 36415; 74176; 80048; 80051; 80053; 80074; 80307; 81001; 82140; 83690; 83735; 83930; 84100; 84132; 85014; 85018; 85025; 85610; 85730; 96374; 96375; C9113; J1200; J2060; J2270; J2405; J3411; J3475; J3480; J7030; J7042